=== PATIENT | male | born 1980 | race Caucasian/White ===

== ENCOUNTER 2025-02-09 17:21 | Emergency (ER) | payer BC, SELFPAY ==
[2025-02-09] VITALS (7 sets, daily range): BP systolic 142–169; BP diastolic 90–106; PULSE 83–100; RESP 17–18; TEMP 36.6; O2SAT 97–99; BMI 27.0
--- NOTE | 2025-02-09 17:32 | ED_ITS ---
<Statement entered by Darnell Cobb MD - 02/09/25 20:28> I was consulted by the JUANCARLOS, and we discussed the complexity of the problems being addressed. I approve the treatment and management plan for this patient's care in the emergency department, thus performing a substantive portion of the medical decision making. Darnell Cobb MD Discharge Plan Disposition Patient Disposition: Home, Self-Care Condition: Good Referrals Follow up/Referrals: Heber Chicas MD [Primary Care Provider, Medical] - See instructions Reza Felipe MD [Staff Physician, Internal Medicine] - See instructions Aaron Thibodeaux DO [Staff Physician, Family Practice] - See instructions Activity Restrictions/Add. Instructions Additional Instructions/Restrictions: Please keep a blood pressure log, utilize ibuprofen and Tylenol for symptomatic relief of your headache, please follow-up with PCP as above, I will call multiple primary care doctor's office and see which 1 to get you in the fastest. Please return to the emergency department with any worsening signs or symptoms. Clinical Impressions Clinical Impression: Headache, Family history of hypertension Instructions Patient Instructions: DI for Headache, DI for High Blood Pressure Print Language Print Language: Arabic Discharge ED Provider: Darnell Cobb General Adult HPI <SHANA Nice - Last Filed: 02/09/25 18:55> General Chief complaint: Headache Stated complaint: High B/P,BARRERA Time Seen by Provider: 02/09/25 17:30 Mode of Arrival: Ambulatory Source of Information: Patient and Relative Limitations: No Limitations History of Present Illness HPI narrative: 44-year-old male presents the emergency department accompanied by family member for a 2 to 3-day history of left-sided headache, some blurry vision , at times, affecting both eyes, concern for high blood pressure , blood pressure recorded at home today was around 150-160 systolic, patient has a family history of hypertension, as well as CVA, he has never formally been diagnosed with hypertension. Patient denies any fever chills cough congestion chest pain shortness of breath abdominal pain nausea vomiting constipation diarrhea, no lightheadedness no presyncopal or syncopal event, no urinary type symptomatology, patient is a current everyday smoker, denies any alcohol or other drug use, no other real relevant past medical history takes no other medications at home. Patient tells me I have not been to the doctor in a very long time . Initial triage vitals are notable for 169 systolic blood pressure, tachycardia, but no tachypnea, no hypoxia. Please note that above description of symptoms, in this electronic medical record under categorization of recalled from ER triage doctor by RN are reflective of an initial nursing assessment, however, is not reflective of my full history and physical exam that was personally taken and clarified. Consequentially, this preceding description of symptoms, which may include the patient's categorized chief complaint in the EMR, do not reflect my personal clinical impression, and the ultimate description of history of present illness and patient stated complaints should be deferred to this section of the note. Unless stated otherwise or congruent with this section of the note, additional signs, symptoms, or incongruence should be interpreted as inaccurate with my clinical impression. Onset (ago): day(s) Related Data Allergies Allergy/AdvReac Type Severity Reaction Status Date / Time No Known Drug Allergies Allergy Other Verified 02/09/25 17:52 PFS <SHANA Nice - Last Filed: 02/09/25 18:55> [facility] Disclaimer: The information contained in this section may have been updated after the patient was seen, as this information can be updated by other users. Social History Smoking Status: Current every day smoker alcohol intake: never current occupational status: other Travel in the last 8 weeks?: None <SHANA Nice - Last Filed: 02/09/25 18:55> ROS Obtained: Yes All systems reviewed & no additional complaints except as documented Physical Exam <SHANA Nice - Last Filed: 02/09/25 18:55> General General appearance: alert and in no apparent distress Head Head exam: atraumatic and normocephalic Eye Eye exam: Present PERRL and EOMI ENT ENT exam: Present mucous membranes moist Neck Neck exam: Present normal inspection Chest Chest inspection: Present normal inspection and symmetric chest wall rise Respiratory Respiratory exam: Present normal lung sounds bilaterally; Absent respiratory distress Cardiovascular Cardiovascular exam: Present regular rate and normal rhythm Abdominal Exam Abdominal exam: Present soft; Absent tenderness, guarding, rebound or rigidity Extremities Exam Extremities exam: Present normal inspection Neurological Exam Neurological exam: Present alert and oriented X3 Psychiatric Psychiatric exam: Present normal affect Skin Skin exam: Present warm and dry Medical Decision Making <SHANA Nice Last Filed: 02/09/25 18:55> Medical Records Medical records reviewed: Yes I reviewed the patient's medical records. Screening: Per USPSTF and CDC recommendations, given the prevalence of disease in our region, it is our hospital?s policy to screen for HIV and viral Hepatitis for all patients aged 18 and over and those with ongoing risk factors. Jorge Inquiry Pt receiving controlled substance: No Jorge was queried for this patient: No Vital Signs: 02/09/25 17:32 02/09/25 17:47 02/09/25 17:48 Temperature 97.9 F 97.9 F Temperature Source Oral Oral Pulse Rate 89 100 H Pulse Rate [Right] 100 H Respiratory Rate 18 18 Blood Pressure 155/106 H 169/105 H Blood Pressure [Left Arm] 156/100 H Blood Pressure [Right Arm] 169/105 H Blood Pressure Mean [Left Arm] 118 Blood Pressure Mean [Right Arm] 126 Blood Pressure Source Automatic Cuff Blood Pressure Source [Left Arm] Automatic Cuff Blood Pressure Source [Right Arm] Automatic Cuff Blood Pressure Position Supine Blood Pressure Position [Left Arm] Supine Blood Pressure Position [Right Arm] Supine 02 Sat by Pulse Oximetry 99 99 99 Oxygen Delivery Method Room Air Room Air 02/09/25 18:00 02/09/25 18:03 02/09/25 18:30 Temperature Temperature Source Pulse Rate 84 83 85 Pulse Rate [Right] Respiratory Rate 17 Blood Pressure 147/93 H 147/93 H 142/90 H Blood Pressure [Left Arm] Blood Pressure [Right Arm] Blood Pressure Mean [Left Arm] Blood Pressure Mean [Right Arm] Blood Pressure Source Automatic Cuff Blood Pressure Source [Left Arm] Blood Pressure Source [Right Arm] Blood Pressure Position Supine Blood Pressure Position [Left Arm] Blood Pressure Position [Right Arm] 02 Sat by Pulse Oximetry 97 98 98 Oxygen Delivery Method Room Air Lab Data Lab results reviewed: Yes I reviewed the patient's lab results. Lab Results 02/09/25 17:48: WBC 7.6, RBC 5.14, Hgb 15.0, Hct 43.0, MCV 83.7, MCH 29.2, MCHC 34.9, RDW 12.0, Plt Count 193, MPV 11.0 H, Neut % (Auto) 63.9, Lymph % (Auto) 27.4, Mccone % (Auto) 6.6, Eos % (Auto) 1.5, Baso % (Auto) 0.3, Neut # (Auto) 4.8, Lymph # (Auto) 2.1, Mccone # (Auto) 0.5, Eos # (Auto) 0.1, Baso # (Auto) 0.0, Sodium 139, Potassium 3.9, Chloride 105, Carbon Dioxide 28, Anion Gap 9.9, BUN 16, Creatinine 0.90, Estimated Creat Clear 152, Estimated GFR 91, Est GFR ( Amer) 110, Glucose 149 H, Calcium 9.1, Total Bilirubin 0.5, AST 29, ALT 21, Alkaline Phosphatase 76, Troponin I < 0.01, NT-Pro-B Natriuret Pep < 20.0, Total Protein 7.4, Albumin 4.4, Globulin 3.0, Albumin/Globulin Ratio 1.5 02/09/25 17:48 02/09/25 17:48 Orders (Tests/Meds): ED MEDICATIONS Generic Name Dose Route Start Last Admin Trade Name Freq PRN Reason Stop Dose Admin Ibuprofen 400 mg 02/09/25 18:50 Ibuprofen 400 Mg Tablet PO 02/09/25 18:51 ONCE ONE ORDERS Category Date Time Status CT head/brain wo con Stat Cat Scan 02/09/25 17:43 Completed XR chest portable Stat Exams 02/09/25 17:44 Completed Complete Blood Count Auto Diff Stat Lab 02/09/25 17:48 Completed Comprehensive Metabolic Panel Stat Lab 02/09/25 17:48 Completed NT Pro Brain Natriuretic Pep. Stat Lab 02/09/25 17:48 Completed Troponin I Q3H Lab 02/09/25 20:45 Ordered Troponin I Q3H Lab 02/09/25 23:45 Ordered Troponin I Stat Lab 02/09/25 17:48 Completed Medical Decision Narrative: 44-year-old male presents the emergency department with dull headache on the left side, blurry vision, concern with high blood pressure, differential diagnosis include but not limited to, hypertensive urgency, hypertensive emergency, cluster headache, migraine headache with aura, migraine without aura, tension headache, cardiac arrhythmia, electrolyte disturbance, undiagnosed essential hypertension among others. I discussed this patient's case with the attending physician Dr. Cobb Will obtain basic laboratory studies, EKG, CT head without contrast, CXR, proBNP troponin. CBC unremarkable CMP is unremarkable. Troponin is less than 0.01, proBNP within normal limits. I reviewed the patient's CT head without contrast along the corresponding radiologic report, no acute intracranial findings. I reviewed the patient's chest x-ray along the corresponding radiologic report, no acute findings. Reexamination of the patient at approximately 6:45 PM, patient has remained hemodynamically stable throughout his time in the emergency department, headache is still there but improved, patient BP is 142 systolic, patient will need to follow-up with PCP and keep blood pressure log, will not actively/acutely bring down the blood pressure here as patient does not have any signs of endorgan damage/dysfunction, and patient's blood pressure systolic was not over 180 versus 120 diastolic, patient will need to follow-up with PCP for most likely undiagnosed essential hypertension. He was given strict ED return precautions and was given 400 mg p.o. Motrin and 500 mg p.o. Tylenol for headache prior to discharge from the emergency department. Patient and family voiced understanding and agreement with current treatment plan/discharge plan. <Darnell Cobb MD - Last Filed: 02/09/25 18:01> Vital Signs: 02/09/25 17:32 02/09/25 17:47 02/09/25 17:48 Temperature 97.9 F 97.9 F Temperature Source Oral Oral Pulse Rate 89 100 H Pulse Rate [Right] 100 H Respiratory Rate 18 18 Blood Pressure 155/106 H 169/105 H Blood Pressure [Left Arm] 156/100 H Blood Pressure [Right Arm] 169/105 H Blood Pressure Mean [Left Arm] 118 Blood Pressure Mean [Right Arm] 126 Blood Pressure Source Automatic Cuff Blood Pressure Source [Left Arm] Automatic Cuff Blood Pressure Source [Right Arm] Automatic Cuff Blood Pressure Position Supine Blood Pressure Position [Left Arm] Supine Blood Pressure Position [Right Arm] Supine 02 Sat by Pulse Oximetry 99 99 99 Oxygen Delivery Method Room Air Room Air 02/09/25 18:00 02/09/25 18:03 02/09/25 18:30 Temperature Temperature Source Pulse Rate 84 83 85 Pulse Rate [Right] Respiratory Rate 17 Blood Pressure 147/93 H 147/93 H 142/90 H Blood Pressure [Left Arm] Blood Pressure [Right Arm] Blood Pressure Mean [Left Arm] Blood Pressure Mean [Right Arm] Blood Pressure Source Automatic Cuff Blood Pressure Source [Left Arm] Blood Pressure Source [Right Arm] Blood Pressure Position Supine Blood Pressure Position [Left Arm] Blood Pressure Position [Right Arm] 02 Sat by Pulse Oximetry 97 98 98 Oxygen Delivery Method Room Air Lab Data Lab Results 02/09/25 17:48: WBC 7.6, RBC 5.14, Hgb 15.0, Hct 43.0, MCV 83.7, MCH 29.2, MCHC 34.9, RDW 12.0, Plt Count 193, MPV 11.0 H, Neut % (Auto) 63.9, Lymph % (Auto) 27.4, Mccone % (Auto) 6.6, Eos % (Auto) 1.5, Baso % (Auto) 0.3, Neut # (Auto) 4.8, Lymph # (Auto) 2.1, Mccone # (Auto) 0.5, Eos # (Auto) 0.1, Baso # (Auto) 0.0, Sodium 139, Potassium 3.9, Chloride 105, Carbon Dioxide 28, Anion Gap 9.9, BUN 16, Creatinine 0.90, Estimated Creat Clear 152, Estimated GFR 91, Est GFR ( Amer) 110, Glucose 149 H, Calcium 9.1, Total Bilirubin 0.5, AST 29, ALT 21, Alkaline Phosphatase 76, Troponin I < 0.01, NT-Pro-B Natriuret Pep < 20.0, Total Protein 7.4, Albumin 4.4, Globulin 3.0, Albumin/Globulin Ratio 1.5 Orders (Tests/Meds): ED MEDICATIONS Generic Name Dose Route Start Last Admin Trade Name Freq PRN Reason Stop Dose Admin Ibuprofen 400 mg 02/09/25 18:50 Ibuprofen 400 Mg Tablet PO 02/09/25 18:51 ONCE ONE ORDERS Category Date Time Status CT head/brain wo con Stat Cat Scan 02/09/25 17:43 Completed XR chest portable Stat Exams 02/09/25 17:44 Completed Complete Blood Count Auto Diff Stat Lab 02/09/25 17:48 Completed Comprehensive Metabolic Panel Stat Lab 02/09/25 17:48 Completed NT Pro Brain Natriuretic Pep. Stat Lab 02/09/25 17:48 Completed Troponin I Q3H Lab 02/09/25 20:45 Ordered Troponin I Q3H Lab 02/09/25 23:45 Ordered Troponin I Stat Lab 02/09/25 17:48 Completed ECG Data Tracing #1: I reviewed this ECG and interpreted as documented below: Normal sinus rhythm. No ST elevation or depression. QTc normal at 399 Critical Care <SHANA Nice - Last Filed: 02/09/25 18:55> Critical Care Time Critical Care Time: No
--- NOTE | 2025-02-09 17:43 | CT_ITS ---
PROCEDURE INFORMATION: Exam: CT Head Without Contrast Exam date and time: 02/09/2025 6:12 PM Age: 44 years old Clinical indication: Other: Headache; Additional info: BARRERA TECHNIQUE: Imaging protocol: Computed tomography of the head without contrast. Radiation optimization: All CT scans at this facility use at least one of these dose optimization techniques: automated exposure control; mA and/or kV adjustment per patient size (includes targeted exams where dose is matched to clinical indication); or iterative reconstruction. COMPARISON: No relevant prior studies available. FINDINGS: Brain: No acute intracranial hemorrhage, midline shift, or mass effect. Cerebral ventricles: No ventriculomegaly. Paranasal sinuses: Mild left maxillary sinus mucosal thickening. Mastoid air cells: Visualized mastoid air cells are well aerated. Bones: Unremarkable. No acute fracture. Soft tissues: Unremarkable. IMPRESSION: No acute intracranial findings.
--- NOTE | 2025-02-09 17:43 | ECG_ITS ---
APPROVED REPORT Exam: Resting ECG HR:85 bpm ECG Measurements Heart Rate 85 AXES VA 154 P 70 QRSd 94 QRS 73 QT 357 T 51 QTc 399 Conclusion SINUS RHYTHM NORMAL ECG UNCONFIRMED REPORT Electronically signed by : SINDY CHAWLA, 02/11/2025 05:07:30
--- NOTE | 2025-02-09 17:44 | XR_ITS ---
PROCEDURE INFORMATION: Exam: XR Chest Exam date and time: 02/09/2025 6:11 PM Age: 44 years old Clinical indication: Shortness of breath; Additional info: SOA TECHNIQUE: Imaging protocol: Radiologic exam of the chest. Views: 1 view. COMPARISON: No relevant prior studies available. FINDINGS: Lungs: No consolidation. Pleural spaces: No pleural effusion. No pneumothorax. Heart/Mediastinum: No cardiomegaly. Bones/joints: Unremarkable. IMPRESSION: No acute findings.
[2025-02-09 17:55] LABS: Hematocrit 43.0 % (42.0-52.0); Hemoglobin 15.0 g/dL (14.1-18.0); Immature Granulocytes % 0.3 %; Mean Corpuscular HGB Conc 34.9 g/dL (31.8-35.4); Mean Corpuscular Hemoglobin 29.2 pg (27.0-31.2); Mean Corpuscular Volume 83.7 fl (80-94); Nucleated Red Blood Cells % 0 %; Platelet Count 193 K/mm3 (142-424); Red Blood Count 5.14 M/mm3 (4.60-6.20); Red Cell Distribution Width-SD 36.8 fL; White Blood Count 7.6 K/mm3 (4.8-10.8)
[2025-02-09 18:04] LABS: Albumin Level 4.4 g/dl (3.5-5.0); Chloride 105 mmol/L (98-107); Sodium 139 mmol/L (136-145)
[2025-02-09 18:05] LABS: Potassium 3.9 mmoL/L (3.5-5.1)
[2025-02-09 18:07] LABS: Alanine Aminotransferase 21 U/L (12-78); Albumin/Globulin Ratio 1.5 (1.1-1.8); Alkaline Phosphatase 76 U/L (38-126); Anion Gap 9.9 mEq/L (5-15); Aspartate Amino Transferase 29 U/L (17-59); Bilirubin,Total 0.5 mg/dl (0.2-1.3); Blood Urea Nitrogen 16 mg/dl (9-20); Calcium 9.1 mg/dl (8.4-10.2); Carbon Dioxide 28 mmol/L (22.0-30.0); Creatinine Clearance Estimated 152 mL/min (50-200); Creatinine,Serum 0.90 mg/dl (0.66-1.25); Estimated Glomerular Filt Rate 91 ml/min (>60); GFR (African American) 110 ML/MIN (>60); Globulin 3.0 g/dL (1.3-3.2); Glucose 149 mg/dl (74-100); Total Protein,Serum 7.4 g/dl (6.3-8.2)
[2025-02-09 18:17] LABS: NT Pro Brain Natriuretic Pep. < 20.0 pg/mL (0-125)
[2025-02-09 18:23] LABS: Troponin I < 0.01 ng/ml (0.00-0.034)
[2025-02-09] MEDS: IBUPROFEN 400 MG TABLET PO (18:54)
[2025-02-09] MEDS: ACETAMINOPHEN 500MG TAB 500 MG PO (18:54)
== END 2025-02-09 18:58 | disposition home or self-care (01) ==
PROVIDERS: Physician Assistant; Emergency Provider Student in an Organized Health Care Education/Training Program; PCP Family Medicine
DX: R51.9 Headache, unspecified (principal); I10 Essential (primary) hypertension; Z82.49 Family history of ischemic heart disease and other diseases of the circulatory system
CPT/HCPCS: 70450; 71045; 80053; 83880; 84484; 85025; 93005; 99284; 99285